=== PATIENT | female | born 2000 | race African-American/Black ===

== ENCOUNTER 2024-01-28 12:43 | Emergency (ER) | payer OTHER, BC ==
[~2024-01-28] VITALS: Ht 165.1 cm; Wt 63.5 kg
[2024-01-28 12:54] VITALS: TEMP 98.3
[2024-01-28] MEDS ORDERED: IBUPROFEN 400 MG TABLET ONE (14:09)
[2024-01-28] MEDS ORDERED: ACETAMINOPHEN ES 500 MG TABLET ONE (14:09)
[2024-01-28] MEDS: IBUPROFEN 400 MG TABLET PO ONE (14:15)
[2024-01-28] MEDS: ACETAMINOPHEN ES 500 MG TABLET PO ONE (14:15)
[2024-01-28 15:10] VITALS: BP 132/88; O2SAT 97
== END 2024-01-28 15:10 | disposition home or self-care (01) ==
LOC: ER 12:51
DX: S13.4XXA Sprain of ligaments of cervical spine, initial encounter (principal); M25.551 Pain in right hip; M25.552 Pain in left hip; R07.81 Pleurodynia; M25.561 Pain in right knee; M79.661 Pain in right lower leg; M25.562 Pain in left knee; R11.0 Nausea; R51.9 Headache, unspecified; V03.99XA Pedestrian with other conveyance injured in collision with car, pick-up truck or van, unspecified whether traffic or nontraffic accident, initial encounter; Y93.89 Activity, other specified; Y92.488 Other paved roadways as the place of occurrence of the external cause; Y99.8 Other external cause status
CPT/HCPCS: 73521; 73564-TC